=== PATIENT | male | born 2000 | race Caucasian/White ===

== ENCOUNTER 2020-11-08 16:17 | Emergency (ER) | payer OTHER, BC ==
[2020-11-08] MEDS ORDERED: Bacitracin 1 PK ONE (16:54)
[2020-11-08] MEDS ORDERED: Ibuprofen 800 MG TAB ONE (16:54)
== END 2020-11-08 17:03 | disposition home or self-care (01) ==
LOC: BURERS 16:17
DX: S16.1XXA Strain of muscle, fascia and tendon at neck level, initial encounter (principal); S40.022A Contusion of left upper arm, initial encounter; S20.212A Contusion of left front wall of thorax, initial encounter; S30.1XXA Contusion of abdominal wall, initial encounter; S80.812A Abrasion, left lower leg, initial encounter; S80.811A Abrasion, right lower leg, initial encounter; V89.2XXA Person injured in unspecified motor-vehicle accident, traffic, initial encounter
CPT/HCPCS: 70450; 71046; 72125; G0390